=== PATIENT | male | born 1980 | race Caucasian/White ===

== ENCOUNTER 2018-12-02 17:32 | Emergency (ER) | payer OTHER ==
[2018-12-02 17:54] VITALS: BP 141/88
--- NOTE | 2018-12-02 18:03 | ED Physician Documentation ---
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 No fevers. No recent travel.) Review of Systems Constitutional: reports: Fatigue. denies: Fever, Chills Ears: reports: Ear pain Nose: reports: Rhinorrhea / runny nose, Congestion Throat: reports: Sore throat Respiratory: reports: Dyspnea, Cough PD PAST MEDICAL HISTORY - Present Medications Home Medications: Ambulatory Orders Medication Instructions Recorded Confirmed Albuterol Sulf [Ventolin Hfa 1 - 2 puffs INH Q4HR PRN #1 inhaler 12/02/18 Inhaler] Amoxicillin 500 mg PO TID #30 capsule 12/02/18 Guaifenesin/Pseudoephedrne HCl 1 each PO BID PRN #20 tab.er.12h 12/02/18 [Mucinex D ER 600-60 mg Tablet] guaiFENesin/CODEINE [Robitussin AC] 5 - 10 ml PO Q6H PRN #120 ml 12/02/18 PD ED PE NORMAL - Vitals Vital signs reviewed: Yes - General General: Alert and oriented X 3, No acute distress - HEENT HEENT: Other (Right otitis media, oropharynx normal, left TM normal.) - Neck Neck: Supple, no meningeal sign, No bony TTP - Cardiac Cardiac: RRR, No murmur - Respiratory Respiratory: No respiratory distress, Clear bilaterally - Abdomen Abdomen: Non tender - Derm Derm: No rash - Neuro Neuro: Alert and oriented X 3, Normal speech Results - Vitals Vitals: Vital Signs - 24 hr 12/02/18 17:50 Temperature 37.0 C Heart Rate 97 Respiratory 20 Rate Blood Pressure 141/88 H O2 Saturation 100 Oxygen O2 Source Room air Departure - Departure Disposition: 01 Home, Self Care Clinical Impression: Upper respiratory tract infection Qualifiers: URI type: unspecified viral URI Qualified Code(s): J06.9 - Acute upper respiratory infection, unspecified ROM (right otitis media) Qualifiers: Otitis media type: suppurative Chronicity: acute Recurrence: non-recurrent Spontaneous tympanic membrane rupture: without spontaneous rupture Qualified Code(s): H66.001 - Acute suppurative otitis media without spontaneous rupture of ear drum, right ear Record reviewed to determine appropriate education?: Yes Instructions: ED Otitis Media Acute Adult, ED Viral Syndrome Prescriptions: Albuterol Sulf [Ventolin Hfa Inhaler] 1 - 2 puffs INH Q4HR PRN #1 inhaler PRN Reason: Shortness Of Air/Wheezing Amoxicillin 500 mg PO TID #30 capsule guaiFENesin/CODEINE [Robitussin AC] 5 - 10 ml PO Q6H PRN #120 ml PRN Reason: Cough Guaifenesin/Pseudoephedrne HCl [Mucinex D ER 600-60 mg Tablet] 1 each PO BID PRN #20 tab.er.12h PRN Reason: congestion Comments: Call your doctor to arrange a follow-up appointment, make the next available appointment. In the interim, return anytime if worse or if new symptoms develop. Your blood pressure was elevated today on check into the emergency department. This does not mean that you have hypertension, it is a common phenomenon to come to the emergency department and have elevated blood pressure. I recommend that you see your primary care physician within the week to have it rechecked when you are feeling better.
== END 2018-12-02 18:05 | disposition home or self-care (01) ==
LOC: ED 17:32
DX: J06.9 Acute upper respiratory infection, unspecified (principal); H66.001 Acute suppurative otitis media without spontaneous rupture of ear drum, right ear; R03.0 Elevated blood-pressure reading, without diagnosis of hypertension
CPT/HCPCS: 99284

== ENCOUNTER 2019-03-12 14:46 | Emergency (ER) | payer OTHER ==
[2019-03-12 15:32] LABS: BASOPHILS % (AUTO) 0.2 %; EOSINOPHILS # (AUTO) 0.1 10^3/uL (0.0-0.7); EOSINOPHILS % (AUTO) 0.7 %; LYMPHOCYTES # (AUTO) 3.3 10^3/uL (1.5-3.5); LYMPHOCYTES % (AUTO) 39.7 %; MEAN CORPUSCULAR HEMOGLOBIN 29.7 pg (27.0-31.0); MEAN CORPUSCULAR HGB CONC 33.9 g/dL (32.0-36.0); MEAN CORPUSCULAR VOLUME 87.5 fL (80.0-94.0); MEAN PLATELET VOLUME 10.8 fL (7.4-11.4); MONOCYTES # (AUTO) 0.5 10^3/uL (0.0-1.0); MONOCYTES % (AUTO) 6.4 %; NEUTROPHILS # (AUTO) 4.4 10^3/uL (1.5-6.6); NEUTROPHILS % (AUTO) 52.6 %; PLT - PLATELET COUNT 277 10^3/uL (130-450); RED BLOOD COUNT 5.05 10^6/uL (4.70-6.10); RED CELL DISTRIBUTION WIDTH 12.9 % (12.0-15.0); WHITE BLOOD COUNT 8.3 x10^3/uL (4.8-10.8)
[2019-03-12] MEDS ORDERED: IBUPROFEN 800 MG TABLET PO STA (15:34)
--- NOTE | 2019-03-12 15:36 | ED Physician Documentation ---
PD HPI ABD PAIN - Stated complaint Stated Complaint: LT SIDE PX, SOA - Chief complaint Chief Complaint: Abd Pain - History obtained from History obtained from: Patient (88-year-old gentleman whose had cough and cold symptoms recently, but nothing severe. Last night at midnight was awoken by severe left-sided abdominal/flank pain which made him unable to get comfortable. No sweats or vomiting. He is never had anything like this before. He does have chronic back pain but this is not anything like that. He denies hematuria or urinary complaints. No recent travel. No leg pain or swelling.) Review of Systems Ten Systems: 10 systems reviewed and negative Constitutional: denies: Fever, Chills Cardiac: denies: Chest pain / pressure, Palpitations Respiratory: reports: Cough. denies: Dyspnea GI: reports: Abdominal Pain. denies: Nausea, Vomiting, Diarrhea : denies: Dysuria, Frequency PD PAST MEDICAL HISTORY - Present Medications Home Medications: Ambulatory Orders Medication Instructions Recorded Confirmed Albuterol Sulf [Ventolin Hfa 1 - 2 puffs INH Q4HR PRN #1 inhaler 12/02/18 Inhaler] Amoxicillin 500 mg PO TID #30 capsule 12/02/18 Guaifenesin/Pseudoephedrne HCl 1 each PO BID PRN #20 tab.er.12h 12/02/18 [Mucinex D ER 600-60 mg Tablet] guaiFENesin/CODEINE [Robitussin AC] 5 - 10 ml PO Q6H PRN #120 ml 12/02/18 Azithromycin 1 tab PO DAILY #4 tablet 03/12/19 - Allergies Allergies/Adverse Reactions: Allergies Allergy/AdvReac Type Severity Reaction Status Date / Time No Known Drug Allergies Allergy Verified 03/12/19 14:54 PD ED PE NORMAL - Vitals Vital signs reviewed: Yes - General General: Alert and oriented X 3, No acute distress, Other (He appears uncomfortable, he had been brought back from triage expeditiously because he had a vagal episode during a blood draw; ) - HEENT HEENT: PERRL, EOMI - Neck Neck: Supple, no meningeal sign, No bony TTP - Cardiac Cardiac: RRR, No murmur - Respiratory Respiratory: No respiratory distress, Clear bilaterally - Abdomen Abdomen: Normal bowel sounds, Soft, Non tender - Back Back: No CVA TTP, No spinal TTP - Derm Derm: Normal color, Warm and dry - Extremities Extremities: No edema, No calf tenderness / cord - Neuro Neuro: Alert and oriented X 3, Normal speech Results - Vitals Vitals: Vital Signs - 24 hr 03/12/19 14:54 Temperature 36.6 C Heart Rate 79 Respiratory 16 Rate Blood Pressure 140/79 H O2 Saturation 97 Oxygen O2 Source Room air - Labs Labs: Laboratory Tests 03/12/19 03/12/19 03/12/19 15:20 15:20 16:30 WBC 8.3 RBC 5.05 Hgb 15.0 Hct 44.2 MCV 87.5 MCH 29.7 MCHC 33.9 RDW 12.9 Plt Count 277 MPV 10.8 Neut # (Auto) 4.4 Lymph # (Auto) 3.3 [place] # (Auto) 0.5 Eos # (Auto) 0.1 Baso # (Auto) 0.0 Absolute Nucleated RBC 0.00 Nucleated RBC % 0.0 Sodium 138 Potassium 3.9 Chloride 105 Carbon Dioxide 21 Anion Gap 12.0 BUN 13 Creatinine 0.9 Estimated GFR (MDRD) 95 Glucose 95 Calcium 9.6 Total Bilirubin 0.4 AST 25 ALT 36 Alkaline Phosphatase 71 Total Protein 8.1 Albumin 5.0 Globulin 3.1 Albumin/Globulin Ratio 1.6 Lipase 38 Urine Color YELLOW Urine Clarity CLEAR Urine pH 6.0 Ur Specific [place] 1.025 Urine Protein NEGATIVE Urine Glucose (UA) NEGATIVE Urine Ketones NEGATIVE Urine Occult Blood NEGATIVE Urine Nitrite NEGATIVE Urine Bilirubin NEGATIVE Urine Urobilinogen 0.2 (NORMAL) Ur Leukocyte Esterase NEGATIVE Ur Microscopic Review NOT INDICATED Urine Culture Comments NOT INDICATED - Rads (name of study) CT A/P Radiology: EMP read contemporaneously (Left lung base subsegmental atelectasis versus infiltrate, indeterminate left splenic lesion) PD MEDICAL DECISION MAKING - ED course ED course: He declines pain medications on initial evaluation mostly because he does not want any more needle sticks, and he is driving, but after discussion would like some ibuprofen. Otherwise this seems most consistent with renal colic which we will evaluate him for. CT as shown, in retrospect this is probably more consistent with pneumonia given the cough, he appears well and did not really need much pain medicine. The incidental splenic lesion was discussed with him in follow-up was advised. Departure - Departure Disposition: 01 Home, Self Care Clinical Impression: Splenic lesion, Flank pain Pneumonia Qualifiers: Pneumonia type: due to unspecified organism Laterality: left Lung location: lower lobe of lung Qualified Code(s): J18.9 - Pneumonia, unspecified organism Condition: Good Record reviewed to determine appropriate education?: Yes Instructions: Abdominal Pain, ED Pneumonia Adult Prescriptions: Azithromycin 1 tab PO DAILY #4 tablet Comments: You as discussed have a 3 cm splenic lesion, [place] may want to perform further imaging on it. Return for new or worsening symptoms.
[2019-03-12 15:47] LABS: ALBUMIN/GLOBULIN RATIO 1.6 (1.0-2.2); BILIRUBIN,TOTAL 0.4 mg/dL (0.2-1.0); CALCIUM 9.6 mg/dL (8.5-10.3); CREATININE 0.9 mg/dL (0.6-1.2); TOTAL PROTEIN 8.1 g/dL (6.7-8.2)
--- NOTE | 2019-03-12 16:11 | CT Report ---
Reason: flank pain Procedure Date: 03/12/2019 Accession Number: [id number] / [id number] Procedure: CT - Abdomen/Pelvis WO CPT Code: Final Report FULL RESULT: EXAM: CT ABDOMEN AND PELVIS (CT KUB) EXAM DATE: 03/12/2019 03:49 PM. CLINICAL HISTORY: Flank pain since midnight. COMPARISONS: None. TECHNIQUE: Routine axial helical CT imaging was performed through the abdomen and pelvis without IV contrast. Reconstructions: Coronal and sagittal. In accordance with CT protocol optimization, one or more of the following dose reduction techniques were utilized for this exam: automated exposure control, adjustment of mA and/or KV based on patient size, or use of iterative reconstructive technique. FINDINGS: Lung Bases: Minimal consolidation on the left, dependent changes on the right. Right Kidney/Ureter: No stones, hydronephrosis, or hydroureter. No perinephric fat stranding. Left Kidney/Ureter: No stones, hydronephrosis, or hydroureter. No perinephric fat stranding. Other Solid Organs: Liver is mildly hypoattenuating with sparing near the gallbladder fossa, hepatic steatosis. The bilateral adrenal glands, spleen and pancreas are unremarkable with the exception of a 3.2 cm hypodense left splenic lesion which is not characterized. Gallbladder/Bile Ducts: Unremarkable. Peritoneal Cavity: No bowel obstruction, free fluid or free air. The appendix is normal. Mild diverticulosis without diverticulitis detected. Prior mesh hernia repair ventrally. Pelvic Organs: No bladder stones or wall thickening. Noncontrast images of the visualized pelvic organs are unremarkable. Vasculature: Unremarkable. Other: None. IMPRESSION: No hydronephrosis or urinary calculi. Small amount of consolidation at the left lung base, appearance favors subsegmental atelectasis. Indeterminate left splenic lesion, 3.2 cm. RADIA
[2019-03-12 16:35] LABS: BILIRUBIN,URINE NEGATIVE (NEGATIVE); GLUCOSE, URINE (UA) NEGATIVE (NEGATIVE); KETONES,URINE (UA) NEGATIVE (NEGATIVE); LEUKOCYTE ESTERASE, URINE NEGATIVE (NEGATIVE); NITRITE,URINE NEGATIVE (NEGATIVE); OCCULT BLOOD,URINE NEGATIVE (NEGATIVE); PROTEIN,URINE NEGATIVE (NEGATIVE); UROBILINOGEN,URINE 0.2 (NORMAL) E.U./dL (NORMAL)
[2019-03-12 16:38] LABS: CLARITY,URINE CLEAR (CLEAR)
[2019-03-12] MEDS ORDERED: AZITHROMYCIN 250 MG TABLET PO STA (16:48)
[2019-03-12 16:58] VITALS: BP 152/90
== END 2019-03-12 16:59 | disposition home or self-care (01) ==
LOC: ED 14:46
DX: J18.9 Pneumonia, unspecified organism (principal); R10.9 Unspecified abdominal pain; D73.89 Other diseases of spleen
CPT/HCPCS: 36415; 74176; 80053; 81003; 83690; 85025; 99284; A9270; 81001; 87086